=== PATIENT | male | born 1990 | race African-American/Black ===

== ENCOUNTER 2022-09-04 23:01 | Emergency (ER) | payer OTHER ==
[2022-09-04 23:13] VITALS: BP 133/88; PULSE 89; RESP 15; TEMP 98.3; BMI 38.0
[2022-09-04] MEDS ORDERED: IBUPROFEN 600 MG TABLET (FP) PO ONE ×2 (23:40→23:42)
[2022-09-04] MEDS ORDERED: METHOCARBAMOL 500 MG TABLET PO ONE (23:40)
[2022-09-04] MEDS ORDERED: METHOCARBAMOL 500 MG TABLET ONE (23:43)
== END 2022-09-05 01:14 | disposition home or self-care (01) ==
LOC: FER 23:01
DX: M54.6 Pain in thoracic spine (principal); V89.0XXA Person injured in unspecified motor-vehicle accident, nontraffic, initial encounter
CPT/HCPCS: 72070-TC-FY; 99283-25

== ENCOUNTER 2023-06-21 12:47 | Emergency (ER) | payer SELFPAY ==
[2023-06-21 13:37] VITALS: BP 122/75; PULSE 95; RESP 18; TEMP 97.8; BMI 38.0
[2023-06-21] MEDS ORDERED: ACETAMINOPHEN 500 MG TABLET (FP) PO ONE (14:41)
[2023-06-21] MEDS ORDERED: IBUPROFEN 600 MG TABLET (FP) PO ONE ×2 (14:41→14:44)
[2023-06-21] MEDS ORDERED: ACETAMINOPHEN 500 MG TABLET (FP) ONE (14:44)
== END 2023-06-21 15:09 | disposition home or self-care (01) ==
LOC: JER 12:47 → JERFT 12:47
DX: M54.50 Low back pain, unspecified (principal); M25.562 Pain in left knee; V49.40XA Driver injured in collision with unspecified motor vehicles in traffic accident, initial encounter; Y93.I9 Activity, other involving external motion
CPT/HCPCS: 99283-25

== ENCOUNTER 2023-12-15 12:58 | Emergency (ER) | payer OTHER ==
[2023-12-15 13:13] VITALS: BP 125/86; PULSE 102; RESP 20; TEMP 98.2; BMI 39.3
[2023-12-15] MEDS: IBUPROFEN 600 MG TABLET (FP) PO ONE (14:10)
== END 2023-12-15 14:30 | disposition home or self-care (01) ==
LOC: JERFT 12:58
DX: M54.2 Cervicalgia (principal); M25.561 Pain in right knee; M25.562 Pain in left knee; V43.02XA Car driver injured in collision with other type car in nontraffic accident, initial encounter
CPT/HCPCS: 99283-25

== ENCOUNTER 2024-10-18 08:55 | Emergency (ER) | payer OTHER ==
[2024-10-18 09:01] VITALS: BP 135/98; PULSE 88; RESP 20; TEMP 97.7; BMI 38.6
[2024-10-18] MEDS ORDERED: IBUPROFEN 400 MG TABLET (FP) PO ONE (10:06)
[2024-10-18] MEDS: IBUPROFEN 400 MG TABLET (FP) PO ONE (10:09)
== END 2024-10-18 10:48 | disposition home or self-care (01) ==
LOC: JERFT 08:55
DX: M25.561 Pain in right knee (principal)
CPT/HCPCS: 73562-TC-RT-FY; 99283-25